=== PATIENT | male | born 1985 | race Caucasian/White ===

== ENCOUNTER 2020-12-04 09:41 | Emergency (ER) | payer MEDICAID ==
[~2020-12-04] VITALS: Ht 175.3 cm; Wt 69.0 kg
[2020-12-04 09:56] VITALS: BP 132/85
--- NOTE | 2020-12-04 10:15 | NUR ---
1ST CONTACT - PROVIDER AT BEDSIDE FOR EVAL. THE PATIENT HAS MULTIPLE COMPLAINTS AND APPEARS DILUSIONAL. HIS SKIN WAS WARM DRY AND INTACT, NO ABNORMALITIES NOTED.
--- NOTE | 2020-12-04 10:21 | NUR ---
THE PATIENT ELOPED WITHOUT D/C PAPERWORK WALKING OUT THE AMBULANCE BAY WITH A STEADY GAIT.
== END 2020-12-04 10:25 | disposition left against medical advice (07) ==
LOC: ED 10:20
DX: F23 Brief psychotic disorder (principal)
CPT/HCPCS: 99284